=== PATIENT | male | born 1965 | race Caucasian/White ===

== ENCOUNTER 2023-02-21 08:32 | Outpatient (CLI) | payer OTHER, SELFPAY | END 2023-02-21 08:33 | disposition home or self-care (01) | PROVIDERS: PCP Family Medicine; Visit Provider Family Medicine | DX: Z00.00 Encounter for general adult medical examination without abnormal findings (principal); I10 Essential (primary) hypertension; E78.5 Hyperlipidemia, unspecified; Z12.5 Encounter for screening for malignant neoplasm of prostate; Z11.59 Encounter for screening for other viral diseases | CPT/HCPCS: 80053; 80061; 82607; 84153; 86803 ==

== ENCOUNTER 2024-03-09 06:24 | Day surgery (SDC) | payer OTHER, SELFPAY ==
[2024-03-09] VITALS (16 sets, daily range): BP systolic 110–151; BP diastolic 69–92; PULSE 64–89; RESP 16; TEMP 36.5–36.7; O2SAT 96–100; BMI 30.3
[2024-03-09] MEDS: LIDOCAINE 1% MDV INJECTION (07:26)
[2024-03-09] MEDS: BUPIVACAINE 0.25% 30 ML INJECTION ×2 (07:27→07:40)
--- NOTE | 2024-03-09 07:32 | W.PM.H&PU ---
History & Physical Update History & Physical Update H&P Reviewed and patient assessed: No changes noted
--- NOTE | 2024-03-09 07:33 | PM.ORPRC ---
Procedure Note Date of procedure: 03/09/24 Procedure: PREOPERATIVE DIAGNOSIS: 1. Right thumb mucous cyst POSTOPERATIVE DIAGNOSIS: 1. Right thumb mucous cyst PROCEDURE: 1. Right thumb mucous cyst excision SURGEON: Hamzah Womack MD. ENTRY LEVEL FINANCE: Miya Lora P.A.-C. An residential assistant was critical for this case to aid in patient positioning, tissue retraction, limb manipulation/positioning, and closure. ANESTHESIA: Local anesthetic TOURNIQUET: 20 minutes at 250 mmHg ESTIMATED BLOOD LOSS: 3 mL COMPLICATIONS: None SPECIMEN: Soft tissue mass consistent with mucous cyst which was sent for pathology. INDICATIONS: The patient is a pleasant 58-year-old male who developed a mass on the dorsal radial aspect of his thumb, which has been slowly growing in size. It was subsequent offered surgical excision to remove the mass and elected to proceed. Prior to surgery, risks and benefits of the procedure were discussed with patient all questions were answered and informed consent was obtained. FINDINGS: Subcutaneous mucous cyst which measured approximately 1 cm in diameter. DESCRIPTION OF PROCEDURE: Patient was seen preoperatively and operative site was marked. He was then brought to the operating room and placed supine on the operating table. A digital nerve block was performed using 1% lidocaine and 0.25% bupivacaine without epinephrine. A tourniquet is placed the patient's right forearm. Right upper extremity some prepped and draped in usual sterile fashion. A surgical time-out was performed confirming patient identity, surgical site, and surgical procedure. Right upper extremities elevated index finger with Esmarch and tourniquet inflated to 250 mmHg. A chevron incision was made as the dorsal aspect of the right thumb overlying the subcutaneous soft tissue mass. Incision was carried through the dermis. The cyst was identified and sharp circumferential dissection was performed. After circumferentially dissecting out the cyst the stalk was traced down to its origin from the IP joint. The base of the stalk was cauterized with bipolar electrocautery. During dissection the cyst was punctured and clear gelatinous fluid was noted to emanate from the cyst. Once the cyst was removed it was sent for pathology. The tourniquet was then released. Hemostasis was achieved electrocautery. Wound was irrigated copious amounts of normal saline. Skin incision was then closed with 4-0 nylon horizontal mattress and simple interrupted sutures. Sterile dressing was applied. Patient transferred to the recovery room in stable condition. PLAN: 1. Discharge to home on day of surgery 2. Tylenol and/or ibuprofen as needed for pain control 3. Ice and elevation for pain and swelling 4. May perform light activities involving use of the thumb but should avoid any heavy lifting or grasping. 5. Follow-up in orthopedic clinic in 10-14 days for wound check and suture removal.
[2024-03-09] MEDS: LIDOCAINE 1% MDV 20 ML INJECTION (07:40)
[2024-03-09] MEDS: BACITRACIN 0.9 GM PACKET 1 EACH TOPICAL (08:26)
== END 2024-03-09 08:52 | disposition home or self-care (01) ==
LOC: OR 06:25
PROVIDERS: PCP Family Medicine; Visit Provider Orthopaedic Surgery
PROC: (CPT 26160; principal; 2024-03-09 07:30)
DX: M67.441 Ganglion, right hand (principal)
CPT/HCPCS: 26160; 88304; A9270; J0665

== ENCOUNTER 2024-04-09 07:46 | Outpatient (CLI) | payer OTHER, SELFPAY | END 2024-04-09 07:47 | disposition home or self-care (01) | PROVIDERS: PCP Family Medicine; Visit Provider Family Medicine | DX: E78.5 Hyperlipidemia, unspecified (principal); I10 Essential (primary) hypertension; Z12.5 Encounter for screening for malignant neoplasm of prostate | CPT/HCPCS: 80053; 80061; 82043; 82570; G0103 ==

== ENCOUNTER 2025-06-24 09:58 | Outpatient (CLI) | payer BC, SELFPAY | END 2025-06-24 09:59 | disposition home or self-care (01) | LOC: NFLDREF 06-27 11:17 | PROVIDERS: PCP Family Medicine; Referring Provider Family Medicine; Visit Provider Family Medicine | DX: E78.5 Hyperlipidemia, unspecified (principal); I10 Essential (primary) hypertension; Z12.5 Encounter for screening for malignant neoplasm of prostate; Z00.00 Encounter for general adult medical examination without abnormal findings | CPT/HCPCS: 80053; 80061; G0103 ==